=== PATIENT | female | born 1930 | race African-American/Black ===

== ENCOUNTER 2018-12-12 04:30 | Inpatient (IN) | payer MEDICARE, OTHER ==
[~2018-12-12] VITALS: Ht 167.6 cm; Wt 63.5 kg
[2018-12-12 06:45] LABS: BASOPHILS % 0.4 % (0.0-2.0); EOSINOPHILS % 1.8 % (0.0-5.0); HEMOGLOBIN. 10.1 g/dL (12.0-16.0); LYMPHOCYTES % 11.5 % (20.0-50.0); MEAN CORPUSCULAR HEMOGLOBIN 27.2 pg (28.0-32.0); MEAN CORPUSCULAR VOLUME 85.7 fL (81.0-99.0); MEAN PLATELET VOLUME 8.8 fl (7.4-10.4); MONOCYTES % 7.7 % (2.0-8.0); NEUTROPHILS % 78.6 % (40.0-76.0); PLATELET 182 x1000/uL (130-400); RED BLOOD CELL COUNT 3.73 mill/uL (4.2-5.4); RED CELL DISTRIBUTION WIDTH 15.2 % (11.6-14.6)
[2018-12-12 06:49] LABS: CHLORIDE 115 mEq/L (98-107)
[2018-12-12] MEDS ORDERED: FUROSEMIDE 40MG/4ML VIAL IVP ONE (07:15)
[2018-12-12] MEDS ORDERED: ENALAPRIL 2.5MG/2ML VIAL 2ML IV ONE (07:15)
[2018-12-12] MEDS ORDERED: ASPIRIN 325MG EC TABLET PO ONE (07:45)
[2018-12-12] MEDS ORDERED: DOCUSATE SODIUM 100MG CAPSULE PO PRN (12:00)
[2018-12-12] MEDS ORDERED: TRAMADOL 50MG TABLET PO PRN (12:00)
[2018-12-12] MEDS ORDERED: NITROGLYCERIN 0.4MG TABLET SL SL PRN (12:00)
[2018-12-12] MEDS ORDERED: IPRATROPIUM/ALBUTEROL 0.5-3(2.5)MG/3ML NEB INH PRN (12:00)
[2018-12-12] MEDS ORDERED: ONDANSETRON HCL 4MG/2ML INJ IV PRN (12:00)
[2018-12-12] MEDS ORDERED: ENOXAPARIN 40MG/0.4ML SYR SUBCUT SCH (12:00)
[2018-12-12] MEDS ORDERED: GUAIFENESIN 200MG/10ML SUGAR FREE UDC PO PRN (12:00)
[2018-12-12] MEDS ORDERED: ZOLPIDEM TARTRATE 5MG TABLET PO PRN (12:00)
[2018-12-12] MEDS ORDERED: ACETAMINOPHEN 325MG TABLET PO PRN (12:00)
[2018-12-12] MEDS ORDERED: MAGNESIUM/ALUMINUM HYDROXIDE/SIMETHICONE 30ML UDC PO PRN (12:00)
[2018-12-12] MEDS ORDERED: HYDRALAZINE HCL 50MG TABLET PO NR (12:00)
[2018-12-12] MEDS ORDERED: METOPROLOL TARTRATE 25MG TABLET PO NR (12:15)
[2018-12-12] MEDS ORDERED: LISINOPRIL 20MG TABLET PO NR (12:15)
[2018-12-12 12:52] LABS: T4 FREE 1.3 ng/dL (0.76-1.46)
[2018-12-12 13:04] LABS: FOLIC ACID (FOLATE) SERUM 14.5 ng/mL (>5.38)
[2018-12-12 14:30] VITALS: BP 196/71
[2018-12-12 16:00] VITALS: BP 208/86
[2018-12-12 16:23] LABS: CREATINE KINASE MB FRACTION 1.4 ng/mL (0.5-3.6)
[2018-12-12] MEDS: CLOPIDOGREL 75MG TABLET PO SCH (16:41)
[2018-12-12] MEDS: FAMOTIDINE 20MG TABLET PO SCH (16:41)
[2018-12-12] MEDS: ENOXAPARIN 30MG/0.3ML SYR SUBCUT SCH (16:41)
[2018-12-12] MEDS: AMLODIPINE 10MG TABLET PO SCH (16:42)
[2018-12-12] MEDS: CLONIDINE 0.1MG TABLET PO PRN (16:42)
[2018-12-12 18:06] VITALS: BP 196/71
[2018-12-12 20:00] VITALS: BP 201/81
[2018-12-12] MEDS ORDERED: ATOR-2 PO (20:13)
[2018-12-12] MEDS ORDERED: PROT40 PO (20:13)
[2018-12-12] MEDS ORDERED: HYDR100T26 PO (20:13)
[2018-12-12] MEDS ORDERED: AMLO10TA80 PO (20:13)
[2018-12-12] MEDS ORDERED: LABE200T28 PO (20:13)
[2018-12-12] MEDS ORDERED: FURO-152 PO (20:13)
[2018-12-12] MEDS ORDERED: ASPI-986 PO (20:13)
[2018-12-12] MEDS: FUROSEMIDE 40MG/4ML VIAL IVP SCH (20:54)
[2018-12-12] MEDS: GUAIFENESIN/DM 600MG/30MG ER TAB 12HR PO SCH (20:54)
[2018-12-12] MEDS: METOPROLOL TARTRATE 25MG TABLET PO SCH (20:55)
[2018-12-12] MEDS: LISINOPRIL 20MG TABLET PO SCH (20:55)
[2018-12-12] MEDS: HYDRALAZINE HCL 50MG TABLET PO SCH (22:29)
[2018-12-12 23:34] LABS: CREATINE KINASE MB FRACTION 1.8 ng/mL (0.5-3.6)
[2018-12-13] VITALS: BP 157/64
[2018-12-13 04:00] VITALS: BP 132/68
[2018-12-13] MEDS: HYDRALAZINE HCL 50MG TABLET PO SCH ×3 (05:42→21:54)
[2018-12-13 08:00] VITALS: BP 164/70
[2018-12-13] MEDS: FAMOTIDINE 20MG TABLET PO SCH (09:20)
[2018-12-13] MEDS: METOPROLOL TARTRATE 25MG TABLET PO SCH ×2 (09:20→20:48)
[2018-12-13] MEDS: CLOPIDOGREL 75MG TABLET PO SCH (09:20)
[2018-12-13] MEDS: FUROSEMIDE 40MG/4ML VIAL IVP SCH ×2 (09:20→20:47)
[2018-12-13] MEDS: GUAIFENESIN/DM 600MG/30MG ER TAB 12HR PO SCH ×2 (09:20→20:48)
[2018-12-13] MEDS: AMLODIPINE 10MG TABLET PO SCH (09:20)
[2018-12-13] MEDS: LISINOPRIL 20MG TABLET PO SCH ×2 (09:21→20:48)
[2018-12-13] MEDS: ASPIRIN 81MG EC TABLET PO SCH (09:21)
[2018-12-13 12:00] VITALS: BP_SYST 159; BP_SYST 188; BP_DIAS 70; BP_DIAS 81
[2018-12-13 16:00] VITALS: BP 199/87
[2018-12-13] MEDS: ENOXAPARIN 30MG/0.3ML SYR SUBCUT SCH (16:00)
[2018-12-13 20:00] VITALS: BP 198/92
[2018-12-14] VITALS (7 sets, daily range): BP systolic 148–200; BP diastolic 54–95
[2018-12-14] MEDS: CLONIDINE 0.1MG TABLET PO PRN ×2 (02:21→11:48)
[2018-12-14] MEDS: HYDRALAZINE HCL 50MG TABLET PO SCH ×3 (06:31→22:22)
[2018-12-14] MEDS: CLOPIDOGREL 75MG TABLET PO SCH (08:46)
[2018-12-14] MEDS: AMLODIPINE 10MG TABLET PO SCH (08:46)
[2018-12-14] MEDS: ASPIRIN 81MG EC TABLET PO SCH (08:47)
[2018-12-14] MEDS: FAMOTIDINE 20MG TABLET PO SCH (08:47)
[2018-12-14] MEDS: FUROSEMIDE 40MG/4ML VIAL IVP SCH ×2 (08:47→22:22)
[2018-12-14] MEDS: METOPROLOL TARTRATE 25MG TABLET PO SCH ×2 (08:47→22:22)
[2018-12-14] MEDS: GUAIFENESIN/DM 600MG/30MG ER TAB 12HR PO SCH ×2 (08:47→22:21)
[2018-12-14] MEDS: LISINOPRIL 20MG TABLET PO SCH ×2 (08:47→22:21)
[2018-12-14] MEDS: ENOXAPARIN 30MG/0.3ML SYR SUBCUT SCH (15:40)
[2018-12-15] VITALS: BP 158/58
[2018-12-15 04:00] VITALS: BP 156/100
[2018-12-15] MEDS: HYDRALAZINE HCL 50MG TABLET PO SCH ×2 (05:11→13:51)
[2018-12-15 08:00] VITALS: BP 194/78
[2018-12-15] MEDS: FUROSEMIDE 40MG/4ML VIAL IVP SCH (08:38)
[2018-12-15] MEDS: METOPROLOL TARTRATE 25MG TABLET PO SCH (08:39)
[2018-12-15] MEDS: AMLODIPINE 10MG TABLET PO SCH (08:39)
[2018-12-15] MEDS: LISINOPRIL 20MG TABLET PO SCH (08:39)
[2018-12-15] MEDS: GUAIFENESIN/DM 600MG/30MG ER TAB 12HR PO SCH (08:39)
[2018-12-15] MEDS: FAMOTIDINE 20MG TABLET PO SCH (08:39)
[2018-12-15] MEDS: ASPIRIN 81MG EC TABLET PO SCH (08:39)
[2018-12-15] MEDS: CLOPIDOGREL 75MG TABLET PO SCH (08:39)
[2018-12-15 12:00] VITALS: BP 171/67
[2018-12-15 14:05] VITALS: BP 159/68
[2018-12-15 16:00] VITALS: BP 168/79
== END 2018-12-15 17:23 | disposition home health service (06) | DRG 291 ==
LOC: ER 04:30 → 7WST 07:56 → EDBEDREQ 07:58 → ENRESERV 11:37 → SUPCPDRO 11:45
PROVIDERS: ADMIT Internal Medicine; ATTEND Internal Medicine
DX: I11.0 Hypertensive heart disease with heart failure (principal); J96.00 Acute respiratory failure, unspecified whether with hypoxia or hypercapnia; N17.0 Acute kidney failure with tubular necrosis; I69.354 Hemiplegia and hemiparesis following cerebral infarction affecting left non-dominant side; I50.43 Acute on chronic combined systolic (congestive) and diastolic (congestive) heart failure; D64.9 Anemia, unspecified; J45.909 Unspecified asthma, uncomplicated; Z79.02 Long term (current) use of antithrombotics/antiplatelets
CPT/HCPCS: 36415; 71045; 76770; 80061; 82550; 82553; 82607; 82746; 83036; 83540; 83550; 83880; 84439; 84443; 84484; 93005; 93306; 93970; 96374; 96375; 97162; 97166; 99285; J1650; J1940; J3490

== ENCOUNTER 2019-02-27 09:30 | Inpatient (IN) | payer MEDICARE, OTHER ==
[~2019-02-27] VITALS: Ht 157.5 cm; Wt 63.0 kg
[~2019-02-27 09:30] MED LIST: AMLO10TA80 PO; ASPI-986 PO; ATOR-2 PO; FURO-152 PO; HYDR100T26 PO; LABE200T28 PO; PROT40 PO
[2019-02-27 10:52] LABS: CHLORIDE 115 mEq/L (98-107)
[2019-02-27 11:02] LABS: BASOPHILS % 0.5 % (0.0-2.0); EOSINOPHILS % 1.6 % (0.0-5.0); HEMATOCRIT. 29.4 % (36.0-48.0); HEMOGLOBIN. 9.6 g/dL (12.0-16.0); LYMPHOCYTES % 10.6 % (20.0-50.0); MEAN CORPUSCULAR VOLUME 85.9 fL (81.0-99.0); MEAN PLATELET VOLUME 8.9 fl (7.4-10.4); MONOCYTES % 10.5 % (2.0-8.0); NEUTROPHILS % 76.8 % (40.0-76.0); PLATELET 160 x1000/uL (130-400); RED BLOOD CELL COUNT 3.42 mill/uL (4.2-5.4); RED CELL DISTRIBUTION WIDTH 15.3 % (11.6-14.6)
[2019-02-27] MEDS ORDERED: ENALAPRIL 2.5MG/2ML VIAL 2ML IV ONE (12:00)
[2019-02-27] MEDS ORDERED: FUROSEMIDE 40MG/4ML VIAL IVP ONE (12:00)
[2019-02-27] MEDS ORDERED: TRAMADOL 50MG TABLET PO PRN (13:00)
[2019-02-27] MEDS ORDERED: MORPHINE SULFATE 2 MG/ML CPJ (NOT FOR IM USE) IV PRN (13:00)
[2019-02-27] MEDS ORDERED: LORAZEPAM 0.5MG TABLET PO PRN (13:00)
[2019-02-27] MEDS ORDERED: NITROGLYCERIN 0.4MG TABLET SL SL PRN (13:00)
[2019-02-27] MEDS ORDERED: ONDANSETRON HCL 4MG/2ML INJ IV PRN (13:00)
[2019-02-27] MEDS ORDERED: ACETAMINOPHEN 325MG TABLET PO PRN (13:00)
[2019-02-27] MEDS ORDERED: GUAIFENESIN 200MG/10ML SUGAR FREE UDC PO PRN (13:00)
[2019-02-27] MEDS ORDERED: IPRATROPIUM/ALBUTEROL 0.5-3(2.5)MG/3ML NEB INH PRN (13:00)
[2019-02-27] MEDS ORDERED: DOCUSATE SODIUM 100MG CAPSULE PO PRN (13:00)
[2019-02-27] MEDS ORDERED: MAGNESIUM/ALUMINUM HYDROXIDE/SIMETHICONE 30ML UDC PO PRN (13:00)
[2019-02-27] MEDS: AMLODIPINE 10MG TABLET PO SCH (15:34)
[2019-02-27] MEDS: CLONIDINE 0.1MG TABLET PO PRN ×2 (18:46→22:11)
[2019-02-27] MEDS ORDERED: ZOLPIDEM TARTRATE 5MG TABLET PO PRN (22:00)
[2019-02-27] MEDS: METOPROLOL TARTRATE 25MG TABLET PO SCH (22:18)
[2019-02-27 23:45] VITALS: BP 181/74
[2019-02-28] VITALS (7 sets, daily range): BP systolic 154–192; BP diastolic 64–79
[2019-02-28] MEDS: ENOXAPARIN 30MG/0.3ML SYR SUBCUT SCH (01:05)
[2019-02-28] MEDS: FUROSEMIDE 40MG/4ML VIAL IVP SCH ×3 (01:06→20:44)
[2019-02-28] MEDS: SPIRONOLACTONE 25MG TABLET PO SCH ×3 (01:06→20:44)
[2019-02-28] MEDS: GUAIFENESIN/DM 600MG/30MG ER TAB 12HR PO SCH ×3 (01:06→20:44)
[2019-02-28] MEDS: LISINOPRIL 20MG TABLET PO SCH ×3 (02:30→20:44)
[2019-02-28 03:03] LABS: CREATINE KINASE 122 IU/L (26-192)
[2019-02-28 03:04] LABS: CREATINE KINASE MB FRACTION < 1.0 ng/mL (0.5-3.6)
[2019-02-28] MEDS: SILDENAFIL CITRATE 20MG TABLET PO SCH ×2 (06:13→14:42)
[2019-02-28] MEDS: CLONIDINE 0.1MG TABLET PO PRN (06:13)
[2019-02-28] MEDS: CLOPIDOGREL 75MG TABLET PO SCH (09:46)
[2019-02-28] MEDS: ASPIRIN 81MG EC TABLET PO SCH (09:47)
[2019-02-28] MEDS: METOPROLOL TARTRATE 25MG TABLET PO SCH ×2 (09:47→20:44)
[2019-02-28] MEDS: AMLODIPINE 10MG TABLET PO SCH (09:47)
[2019-02-28] MEDS ORDERED: ASPI-1393 MT (14:42)
[2019-03-01] VITALS (7 sets, daily range): BP systolic 127–184; BP diastolic 68–91
[2019-03-01] MEDS: ENOXAPARIN 30MG/0.3ML SYR SUBCUT SCH ×2 (00:22→22:05)
[2019-03-01] MEDS: SILDENAFIL CITRATE 20MG TABLET PO SCH ×4 (00:22→22:04)
[2019-03-01] MEDS: CLONIDINE 0.1MG TABLET PO PRN ×2 (00:22→06:16)
[2019-03-01] MEDS: FUROSEMIDE 40MG/4ML VIAL IVP SCH ×2 (09:53→22:04)
[2019-03-01] MEDS: CLOPIDOGREL 75MG TABLET PO SCH (09:57)
[2019-03-01] MEDS: SPIRONOLACTONE 25MG TABLET PO SCH ×2 (09:57→22:04)
[2019-03-01] MEDS: ASPIRIN 81MG EC TABLET PO SCH (09:57)
[2019-03-01] MEDS: AMLODIPINE 10MG TABLET PO SCH (09:57)
[2019-03-01] MEDS: GUAIFENESIN/DM 600MG/30MG ER TAB 12HR PO SCH ×2 (09:57→22:04)
[2019-03-01] MEDS: LISINOPRIL 20MG TABLET PO SCH ×2 (09:57→22:04)
[2019-03-01] MEDS: METOPROLOL TARTRATE 25MG TABLET PO SCH ×2 (09:58→22:04)
[2019-03-02] VITALS: BP 182/74
[2019-03-02] MEDS: CLONIDINE 0.1MG TABLET PO PRN ×2 (01:00→06:56)
[2019-03-02 04:00] VITALS: BP 174/84
[2019-03-02] MEDS: SILDENAFIL CITRATE 20MG TABLET PO SCH ×2 (06:56→14:12)
[2019-03-02 08:00] VITALS: BP 174/99
[2019-03-02] MEDS: FUROSEMIDE 40MG/4ML VIAL IVP SCH (09:28)
[2019-03-02] MEDS: CLOPIDOGREL 75MG TABLET PO SCH (09:30)
[2019-03-02] MEDS: GUAIFENESIN/DM 600MG/30MG ER TAB 12HR PO SCH (09:30)
[2019-03-02] MEDS: AMLODIPINE 10MG TABLET PO SCH (09:30)
[2019-03-02] MEDS: METOPROLOL TARTRATE 25MG TABLET PO SCH (09:30)
[2019-03-02] MEDS: ASPIRIN 81MG EC TABLET PO SCH (09:30)
[2019-03-02] MEDS: LISINOPRIL 20MG TABLET PO SCH (09:31)
[2019-03-02] MEDS: SPIRONOLACTONE 25MG TABLET PO SCH (09:41)
[2019-03-02 11:26] VITALS: BP 136/43
[2019-03-02 12:00] VITALS: BP 135/55
[2019-03-02 16:00] VITALS: BP 136/43
== END 2019-03-02 19:00 | disposition home or self-care (01) | DRG 291 ==
LOC: ER 09:30 → 5WST 12:43 → SUPCPDRO 12:46 → ENRESERV 21:39
PROVIDERS: ADMIT Internal Medicine; ATTEND Internal Medicine
DX: I11.0 Hypertensive heart disease with heart failure (principal); J96.00 Acute respiratory failure, unspecified whether with hypoxia or hypercapnia; N17.0 Acute kidney failure with tubular necrosis; E44.1 Mild protein-calorie malnutrition; E87.0 Hyperosmolality and hypernatremia; I50.43 Acute on chronic combined systolic (congestive) and diastolic (congestive) heart failure; E78.00 Pure hypercholesterolemia, unspecified; D63.8 Anemia in other chronic diseases classified elsewhere; E83.51 Hypocalcemia; I27.20 Pulmonary hypertension, unspecified; K21.9 Gastro-esophageal reflux disease without esophagitis; Z86.73 Personal history of transient ischemic attack (TIA), and cerebral infarction without residual deficits; Z68.25 Body mass index [BMI] 25.0-25.9, adult; Z79.82 Long term (current) use of aspirin; Z79.899 Other long term (current) drug therapy
CPT/HCPCS: 36415; 71045; 80061; 82550; 82553; 83036; 83880; 84484; 93005; 93970; 96374; 96375; 97116; 97162; 97166; 97530; 97535; 99285; J1650; J1940; J3490

== ENCOUNTER 2019-06-15 07:23 | Inpatient (IN) | payer MEDICARE, OTHER ==
[~2019-06-15] VITALS: Ht 167.6 cm; Wt 69.4 kg
[~2019-06-15 07:23] MED LIST changes: +ASPI-1393 MT; -ASPI-986 PO; -PROT40 PO
[2019-06-15] MEDS ORDERED: FUROSEMIDE 40MG/4ML VIAL IV ONE (08:00)
[2019-06-15] MEDS ORDERED: NITROGLYCERIN OINT 1GM/INCH UDPKT TD ONE (08:00)
[2019-06-15 08:15] LABS: BASOPHILS % 0.5 % (0.0-2.0); EOSINOPHILS % 1.4 % (0.0-5.0); HEMOGLOBIN. 9.4 g/dL (12.0-16.0); LYMPHOCYTES % 9.9 % (20.0-50.0); MEAN CORPUSCULAR HEMOGLOBIN 27.7 pg (28.0-32.0); MEAN CORPUSCULAR VOLUME 85.4 fL (81.0-99.0); MEAN PLATELET VOLUME 9.4 fl (7.4-10.4); MONOCYTES % 9.1 % (2.0-8.0); NEUTROPHILS % 79.1 % (40.0-76.0); PLATELET 152 x1000/uL (130-400); RED BLOOD CELL COUNT 3.39 mill/uL (4.2-5.4); RED CELL DISTRIBUTION WIDTH 15.2 % (11.6-14.6)
[2019-06-15 08:21] LABS: CHLORIDE 116 mEq/L (98-107); PROTHROMBIN TIME 10.7 sec (9.6-11.0)
[2019-06-15] MEDS ORDERED: ASPIRIN 325MG EC TABLET PO ONE (10:30)
[2019-06-15] MEDS ORDERED: CLONIDINE 0.1MG TABLET PO NR ×2 (12:00→17:30)
[2019-06-15] MEDS ORDERED: PIPERACILLIN/TAZOBACTAM 2.25 G in DEXTROSE 5% WATER 50 ML IV SCH ×2 (12:00→18:00)
[2019-06-15 15:30] VITALS: BP 168/80
[2019-06-15 17:02] VITALS: BP 168/80
== END 2019-06-15 17:45 | disposition short-term general hospital (02) | DRG 291 ==
LOC: ER 07:23 → 6WST 09:07 → EDBEDREQ 09:27 → EDBEDREQTM 09:27 → SUPCPDRO 10:36 → ENRESERV 12:08
PROVIDERS: ADMIT Internal Medicine; ATTEND Internal Medicine
DX: I13.0 Hypertensive heart and chronic kidney disease with heart failure and stage 1 through stage 4 chronic kidney disease, or unspecified chronic kidney disease (principal); I50.43 Acute on chronic combined systolic (congestive) and diastolic (congestive) heart failure; J18.9 Pneumonia, unspecified organism; R06.03 Acute respiratory distress; N18.9 Chronic kidney disease, unspecified; E86.0 Dehydration; D64.9 Anemia, unspecified; Z79.899 Other long term (current) drug therapy; I69.392 Facial weakness following cerebral infarction
CPT/HCPCS: 36415; 71045; 83880; 84484; 87804; 93005; 96374; 96375; 99285; J1940; J2543; J7060